=== PATIENT | female | born 1945 | race Caucasian/White ===

== ENCOUNTER → 2018-02-24 | Outpatient (CLI) | payer OTHER ==
[~2018-02-24] VITALS: Ht 152.4 cm; Wt 81.7 kg
[~2018-02-24] MED LIST: AMARYL4 MG PO; ASPIR 8181 MG PO; ATENOLOL 50MG T50 M1 PO; CENTRUM SILVER1 EAC4 PO; CO Q-10100 MG PO; IBUPROFEN 600600 M1 PO; INCRUSE ELLI62.5 MCG INH; JANUVIA 50 MG T50 M1 PO; METFORMIN HCL500 MG PO; NASACORT10.8 ML NASAL; PRINIVIL20 MG PO; SIMVASTATIN40 MG PO; SPIRIVA INH; VITAMIN D2000 UNIT PO
--- NOTE | ~2018-02-24 | P ---
[facility] [place] [address] PROCEDURE REPORT Name: SEBASITAN HENSLEY Room #: REG [facility]#: [id number] Admission: 02/24/18 Attend Phys: Umesh Murillo MD Discharge: Date of : 47 Report #: [id number] THIS REPORT FOR: //name// CC: Umesh Clement MD DATE OF SERVICE: 02/24/2018 BRIEF HISTORY: The patient is an 81-year-old woman for high risk screening colonoscopy. She has had at least two adenomas in the past including a large adenoma with a residual polyp at the polypectomy site at the time of her last colonoscopy. PREOPERATIVE DIAGNOSIS: High risk screening colonoscopy due to history of colon polyps. POSTOPERATIVE DIAGNOSES: 1. Multiple colon polyps. 2. Rectal polyp. 3. Moderate sigmoid diverticulosis coli. MEDICATIONS: Deep sedation with propofol per anesthesia. SPECIMENS: 1. Proximal ascending colon polyps x 2. 2. Hepatic flexure polyp. 3. Flat polyp, transverse colon. 4. Rectal polyp. ESTIMATED BLOOD LOSS: 3 mL. PROCEDURE: Colonoscopy to cecum and terminal ileum with snare polypectomy and biopsy. FINDINGS: Prior to propofol sedation, procedure of colonoscopy discussed with the patient as well as potential risks, benefits and complications. She indicates she understands and desires to proceed. With the patient in the left lateral decubitus position, digital examination was completed, which revealed no abnormalities. Subsequently, the Olympus video colonoscope was introduced in the rectum, advanced under direct vision to the cecum. Done with minimal difficulty. The cecum was identified by the ileocecal valve and the appendiceal orifice. I was able to advance the tip of the scope to the mouth of the ileocecal valve and see a villous pattern, but could not deeply intubate the ileum due to looping of the scope. At that point, the scope [facility] [address] [place] [address] PROCEDURE REPORT Name: SEBASTIAN HENSLEY ZAHIDA Room #: REG [facility].#: [id number] Admission: 02/24/18 Attend Phys: Umesh Murillo MD Discharge: Date of : 47 Report #: [id number] was slowly withdrawn and careful circumferential views obtained including retroflexion in the proximal ascending colon. Upon slow withdrawal of the scope, the prep was good. The mucosa was within normal limits, normal vascular pattern and normal light reflex. As we withdrew the scope, she was found to have two diminutive polyps removed by biopsy from the proximal ascending colon. The scope was further withdrawn and a diminutive polyp was seen and removed by biopsy at the hepatic flexure. In the proximal transverse colon, a flat 6 mm polyp was seen and removed by cold snare polypectomy and recovered. The scope was further withdrawn and no other abnormalities were noted until the sigmoid colon was reached at which point she was noted to have moderately severe diverticular disease without endoscopic evidence of diverticulitis. The scope was withdrawn to the rectum and a 5 mm sessile polyp was seen and removed by cold snare polypectomy and recovered. The scope was further withdrawn. No additional abnormalities were seen. Upon retroflexion in the rectum, no abnormalities were seen. Scope was withdrawn. The patient tolerated the procedure well. CONDITION OF THE PATIENT UPON DISCHARGE: Following procedure, the patient drowsy, arousable and conversant and will be discharged home when fully ambulatory. INSTRUCTIONS TO THE PATIENT AND FAMILY AT THE TIME OF DISCHARGE: We will follow up on the pathology of the polyp. If three or more polyps are adenomas, she should return in 3 years, otherwise I suggest she return in about 5 years. Last colonoscopy was 5 years ago. Withdrawal time to the cecum was 18 minutes 47 seconds. <ELECTRONICALLY SIGNED> By: Umesh Murillo MD 02/26/18 [id number] Umesh Murillo MD /nt
--- NOTE | ~2018-02-24 | PATH ---
[facility] [place] [place] [address] PATHOLOGY RPT PROCEDURE Name: ANAHY GRUBER Room #: REG [facility]..#: [id number] Admission: 02/24/18 Date of : 47 Discharge: Report #: [id number] Path Case #: [id number] [facility] Accession Number: [id number] . 01 Material submitted: . PART A: PROXIMAL ASCENDING POLYP X2 PART B: HEPATIC FLEXURE POLYP PART C: TRANSVERSE COLON POLYP PART D: RECTAL POLYP . 01 Clinical history: . Pre-OP DX: Hx of polyps Post-OP DX: Polyps . 02 Diagnosis: A. Polyp x 2, proximal ascending polyp, endoscopic biopsy: - Two fragments amongst multiple fragments showing tubular adenoma. - Negative for high grade dysplasia. . B. Polyp, hepatic flexure polyp, endoscopic biopsy: - Compatible with a hyperplastic polyp and a lymphoid aggregate. - Negative for dysplasia. . C. Polyp, transverse colon polyp, endoscopic biopsy: - Tubular adenoma. - Negative for high grade dysplasia. . D. Polyp, rectal polyp, endoscopic biopsy: - Hyperplastic polyp. - Negative for dysplasia. (IUV/db; 02/27/18) LBQ/02/27/2018 . 02 Electronically signed: . Naye Casas MD, Pathologist NPI- [id number] . 01 Gross description: . A. Received in formalin labeled "Anahy Gruber, proximal ascending polyp," are 4 segments of sifuentes soft tissue measuring 1.6 x 0.8 x 0.3 cm in aggregate dimensions and ranging from 0.4 to 0.6 cm in maximum dimension. The specimen is submitted entirely in cassette A1. . B. Received in formalin labeled "Anahy Gruber, hepatic flexure polyp," is a single segment of sifuentes soft tissue measuring 0.5 cm in maximum dimension. The specimen is entirely submitted in cassette B1. [place] [address] PATHOLOGY RPT PROCEDURE Name: ANAHY GRUBER ZAHIDA Room #: REG [facility].#: [id number] Admission: 02/24/18 Date of : 47 Discharge: Report #: [id number] Path Case #: [id number] C. Received in formalin labeled "Anahy Gruber, transverse colon polyp," is a single segment of sifuentes soft tissue measuring 0.9 cm in maximum dimension. The specimen is entirely submitted in cassette C1. . D. Received in formalin labeled "Gruber, Anahy, rectal polyp," is a single segment of sifuentes soft tissue measuring 0.7 cm in maximum dimension. The specimen is entirely submitted in cassette D1. (TSD; 02/24/2018) TOB/TOB . 02 Pathologist provided ICD-10: D12.2, K63.5, D12.3, K62.1 . 02 CPT . 566188, 672747, 754343, 607348 Specimen Comment: A courtesy copy of this report has been sent to Specimen Comment: [phone], . Specimen Comment: Report sent to / DR LERNER Performed at: [address], [place] [id number] MD Robbie Byers MD Phone: [phone] Performed at: [address] [id number] MD Naye Casas MD Phone: [phone]
== END | disposition home or self-care (01) ==
LOC: GI 07:42
DX: Z12.11 Encounter for screening for malignant neoplasm of colon (principal); Z86.010 Personal history of colon polyps; D12.2 Benign neoplasm of ascending colon; D12.3 Benign neoplasm of transverse colon; K63.5 Polyp of colon; K62.1 Rectal polyp; K57.30 Diverticulosis of large intestine without perforation or abscess without bleeding; J43.9 Emphysema, unspecified; I10 Essential (primary) hypertension; E11.9 Type 2 diabetes mellitus without complications; Z79.899 Other long term (current) drug therapy; Z85.51 Personal history of malignant neoplasm of bladder; Z87.891 Personal history of nicotine dependence; Z98.890 Other specified postprocedural states; Z79.82 Long term (current) use of aspirin
CPT/HCPCS: 62110; 62900

== ENCOUNTER 2019-12-18 15:17 | Emergency (ER) | payer OTHER ==
[~2019-12-18] VITALS: Ht 152.4 cm; Wt 79.4 kg
[2019-12-18] MEDS ORDERED: NORCO 5-325 TA1 EAC2 PO (17:49)
[2019-12-18 18:12] VITALS: BP 170/56
== END 2019-12-18 18:12 | disposition home or self-care (01) ==
LOC: ER 15:17
DX: G57.11 Meralgia paresthetica, right lower limb (principal); I10 Essential (primary) hypertension; E11.9 Type 2 diabetes mellitus without complications; J44.9 Chronic obstructive pulmonary disease, unspecified; E78.5 Hyperlipidemia, unspecified; Z79.899 Other long term (current) drug therapy; Z87.891 Personal history of nicotine dependence